=== PATIENT | male | born 1990 | race Caucasian/White ===

== ENCOUNTER 2017-07-25 13:27 | Emergency (ER) | payer OTHER ==
[2017-07-25 13:35] VITALS: BP 152/97; PULSE 108; TEMP 98; BMI 24.4
[2017-07-25] MEDS ORDERED: IBUPROFEN 400 MG TABLET (FP) PO ONE ×2 (15:58→15:59)
--- NOTE | 2017-07-25 16:11 | PDOC ---
History of Present Illness - General Chief Complaint: Laceration Stated Complaint: LACERATION Time Seen by Provider: 07/25/17 14:51 History Source: Patient Exam Limitations: No Limitations - History of Present Illness Initial Comments: 07/25/17 16:02 CHIEF COMPLAINT: Nasal Injury HISTORY OF PRESENT ILLNESS: Patient is a 27-year-old male, no significant medical history currently on no medication. Tetanus is up-to-date reports playing around with his nephew and his nephew hit him in the bridge of the nose while play fighting. Sustained a 1/2 cm laceration to nose. Minor nasal bleeding which is controlled upon arrival. Patient denied any LOC, no visual disturbance, no nausea vomiting. PMH: [None] MEDS:[ None] ALLERGIES: [None] PCP: [None] REVIEW OF SYSTEMS: GENERAL/CONSTITUTIONAL: Awake alert and oriented HEAD, EYES, EARS, NOSE AND THROAT: No change in vision. Edema to right lateral side of nose, and bridge, 1.5 cm laceration, no bruising. NO active bleeding. Right nares with blood, no active bleeding. RESPIRATORY: No cough, wheezing, or hemoptysis. CARDIAC: Denies chest pain, no shortness of breathe. MUSCULOSKELETAL: No spinal point tenderness, Good ROM to all four extremeties. NO CVA tenderness. [No] lateral neck pain. GI/: Denies abdominal pain, no nausea or vomiting, no bloody stool, no Hematuria. SKIN : No erythema or bruising noted. No abrasion or lacerations. NEUROLOGIC: No loss of consciousness, no numbness or tingling. PHYSICAL EXAM: GENERAL: Awake and alert and oriented x3. EYES: The pupils are equal, round, and reactive to light, with clear, conjunctiva. Good extraocular movement. No nystagmus NOSE: Edema to the left lateral nose, there is dry blood in the left nares. MOUTH: Teeth intact. EARS: The ear canals and tympanic membranes are normal without trauma. No drainage. NECK: No Lower cervical C-spine tenderness, no pain with chin to chest. CHEST: The lungs are clear without crackles, or wheezes. No subcutaneous emphysema. No crepitus. HEART: Heart is regular rhythm, with normal S1 and S2, no murmurs. ABDOMEN: The abdomen is soft and nontender with normal bowel sounds. There is no guarding or rebound. MUSCULOSKELETAL: No spinal point tenderness. No bruising or erythema. Pelvis stable. EXTREMITIES: Extremities are normal. No visible traumatic injury. NEUROLOGICAL:Mental status: The patient is oriented x3. No Generalized headache , Romberg [-] Cranial nerves: Cranial nerves II through XII are intact Motor: The upper extremities are 5 over 5 in all muscle groups. The lower extremities are 5 over 5 in all muscle groups. Sensation: Sensation is intact to light touch throughout. Cerebellar: Mwlwdh-vflltc-yoad is normal in both upper extremities. Heel-knee- king is normal in both lower extremities. Reflexes: 2+ and symmetric in the upper and lower extremities. Gait: Normal. Heel and toe walking are normal. Tandem gait is normal. SKIN: Edema to sofi left lateral nose with a 1.5 cm laceration. + erythema no bruising. Past History - Past Medical History Allergies/Adverse Reactions: Allergies Allergy/AdvReac Type Severity Reaction Status Date / Time No Known Allergies Allergy Verified 07/25/17 13:35 Home Medications: Ambulatory Orders Cefadroxil 500 mg PO BID #10 capsule 07/25/17 COPD: No Other medical history: NONE - Suicide/Smoking/Psychosocial Hx Smoking History: Current every day smoker Number of Cigarettes Smoked Daily: 10 Information on smoking cessation initiated: Yes 'Breaking Loose' booklet given: 07/25/17 Hx Alcohol Use: Yes (SOCIAL) Drug/Substance Use Hx: No Substance Use Type: None *Physical Exam - Vital Signs Last Vital Signs Temp Pulse Resp BP Pulse Ox 98.0 F 108 H 20 152/97 99 07/25/17 13:31 07/25/17 13:31 07/25/17 13:31 07/25/17 13:31 07/25/17 13:31 Procedures - Laceration/Wound Repair Left Lateral Nose Wound Length: to 2.5 cm Wound's Depth, Shape: linear Irrigated w/ Saline: Yes Betadine Prep: Yes Wound Repaired With: Dermabond (steri strips. ) ED Treatment Course - RADIOLOGY Radiology Studies Ordered: Category Date Time Status NASAL BONES [RAD] Stat Radiology 07/25/17 15:05 Taken - Medications Given in the ED: ED Medications Discontinued Medications Generic Name Dose Route Start Last Admin Trade Name Freq PRN Reason Stop Dose Admin Ibuprofen 800 mg 07/25/17 15:59 07/25/17 16:00 Motrin - PO 07/25/17 16:00 800 mg ONCE ONE Administration Medical Decision Making - Medical Decision Making 07/25/17 16:11 A/P: She is status post nasal trauma, no visual disturbance, no LOC, no further complaint. No active bleeding upon arrival. Wound able to be repaired using Dermabond. Since x-ray to rule out acute fracture. 07/25/17 16:58 X-ray demonstrated a linear oblique fracture nasal bone distally and a possible transverse fracture involving the mid nasal bone. Patient denies any respiratory difficulty, nose is stable. Patient able to breathe comfortably through his nose. Follow-up with plastics. Nasal laceration repaired, see procedure note. Motrin 800 mg by mouth 1 given, patient with no neurological deficits, no visual disturbance, no bleeding. We'll DC patient home, Tylenol for pain, follow plastics. I discussed the physical exam findings, ancillary test results and final diagnoses with the patient. I answered all of the patient's questions. The patient was satisfied with the care received and felt comfortable with the discharge plan and treatment plan. The patient will call to arrange follow-up and will return to the Emergency Department with any new, persistent or worsening symptoms. *DC/Admit/Observation/Transfer Diagnosis at time of Disposition: Nasal injury Qualifiers: Encounter type: initial encounter Qualified Code(s): S09.92XA - Unspecified injury of nose, initial encounter Nasal laceration Qualifiers: Encounter type: initial encounter Qualified Code(s): S01.21XA - Laceration without foreign body of nose, initial encounter Nasal bone fracture Qualifiers: Encounter type: initial encounter Fracture type: open Qualified Code(s): S02.2XXB - Fracture of nasal bones, initial encounter for open fracture - Discharge Dispostion Disposition: HOME Condition at time of disposition: Stable - Prescriptions Prescriptions: Cefadroxil 500 mg PO BID #10 capsule - Referrals Referrals: Daniel Marina MD [Staff Physician] - - Patient Instructions Printed Discharge Instructions: DI for Nose Fracture, DI for Laceration Repair With Dermabond Additional Instructions: Please keep area clean and dry Please keep Steri-Strips on until they fall off on their own Area may bruise Any increased redness, swelling, or signs of infection return to ER If area opens, increased bleeding or any other concerns return to ER Chance of scarring as discussed Follow-up plastic surgery for evaluation of nasal fracture Recommend return to emergency department if any difficulty breathing, visual disturbance, or any other concerns. - Post Discharge Activity
== END 2017-07-25 16:56 | disposition home or self-care (01) ==
LOC: JERFT 13:27
PROC: 0HQ1XZZ Repair Face Skin, External Approach (ICD-10-PCS; principal; 2017-07-25)
DX: S01.21XA Laceration without foreign body of nose, initial encounter (principal); S09.92XA Unspecified injury of nose, initial encounter; S02.2XXA Fracture of nasal bones, initial encounter for closed fracture; W50.0XXA Accidental hit or strike by another person, initial encounter; Y93.89 Activity, other specified; Y92.9 Unspecified place or not applicable
CPT/HCPCS: 70160-TC; 99281-25